=== PATIENT | male | born 1970 | race African-American/Black ===

== ENCOUNTER 2018-10-26 19:51 | Emergency (ER) | payer MEDICAID ==
[~2018-10-26] VITALS: Ht 188 cm; Wt 79.0 kg
[2018-10-26] MEDS ORDERED: IBUPROFEN 600MG TABLET PO STA (22:52)
[2018-10-27 00:48] VITALS: BP 126/82
== END 2018-10-27 00:50 | disposition home or self-care (01) ==
LOC: ER 19:51
DX: S93.401A Sprain of unspecified ligament of right ankle, initial encounter (principal); X50.1XXA Overexertion from prolonged static or awkward postures, initial encounter; Y93.89 Activity, other specified; Y92.89 Other specified places as the place of occurrence of the external cause; Z98.890 Other specified postprocedural states
CPT/HCPCS: 73610; 99283; Z7610